=== PATIENT | male | born 1990 | race Caucasian/White ===

== ENCOUNTER → 2024-08-11 | Outpatient (CLI) | payer BC, SELFPAY ==
--- NOTE | 2024-08-11 11:05 | MRI_ITS ---
STUDY: MR PELVIS WITH T WITHOUT CONTRAST REASON FOR EXAM: Male, 33 years old. LUMP L GROIN/THIGH, AREA MARKED WITH MARKER SUPRA PUBIC TO L GROIN TECHNIQUE: Standardized fat and water weighted pulse sequences were obtained in all 3 orthogonal planes, pre-and post contrast administration. IV 23 CC CLARISCAN was administered for the contrast portion of the examination. COMPARISON: None. FINDINGS: A symptomatic marker is present over the midline of the pubic symphysis region with a subcutaneous vessel seen directly beneath this region. No cyst or fluid collection or lipoma or soft tissue mass is present. No lymphadenopathy is seen. No edema or inflammatory stranding is present. No demonstrated inguinal hernias. Normal urinary bladder. Normal visualized small intestine. Normal visualized colon. There is no pelvic fluid. There is no pelvic mass lesion or lymphadenopathy. Normal visualized pelvic arteries. Normal osseous structures. Normal abdominal wall. MRI/Pelvis W/WO Contrast IMPRESSION: 1. A symptomatic marker is present over the midline of the pubic symphysis region with a subcutaneous vessel seen directly beneath this region. No cyst or fluid collection or lipoma or soft tissue mass is present. No lymphadenopathy is seen. No edema or inflammatory stranding is present. No demonstrated inguinal hernias. Electronically Signed: Yvon Velazquez MD at 15:39 EST ,
== END | disposition home or self-care (01) ==
PROVIDERS: PCP Family Medicine; Referring Provider Dermatology; Visit Provider Dermatology
DX: D48.5 Neoplasm of uncertain behavior of skin (principal)
CPT/HCPCS: 72197; A9575